=== PATIENT | male | born 1985 | race Two or more races ===

== ENCOUNTER 2025-07-01 03:30 | Emergency (ER) | payer MEDICAID, SELFPAY ==
--- NOTE | 2025-07-01 03:32 | PD.EDBACK ---
ED Back Injury Pain RME/HPI General Chief Complaint: Back Pain/Injury Stated Complaint: BACK PAIN Time Seen by Provider: 07/01/25 03:34 Arrival date/time: 07/01/25 03:30 RME / HPI RME / HPI Narrative: Dr. Mckeon?s Main ED Evaluation: 40yo male with no significant past medical history BIBAnnel from home presents to the ED for a chief complaint of lower back pain. Patient states he was bending over to take tape off of a box earlier tonight when he started having significant lower back pain. Patient states he got up to use the restroom tonight and was unable to tolerate the pain. EMS administered Ketamine 25mg en route. Patient denies any falls or injuries. Denies any N/V, fever, chills, or any other associated symptoms. NKA. Related Data Previous Rx's ?Medication ?Instructions ?Recorded ibuprofen 800 mg tablet 800 mg PO Q8H PRN pain #30 tabs 07/01/25 morphine 15 mg immediate release 15 mg PO Q6H PRN pain #20 tabs 07/01/25 tablet Allergies Allergy/AdvReac Type Severity Reaction Status Date / Time No Known Allergies Allergy Verified 08/23/23 09:08 Review of Systems Review of Systems Systems Reviewed: All systems reviewed, normal except as documented Past Medical History Social History SMOKING STATUS: Heavy (> 1 pack/day) ED Exam Narrative Physical exam: Patient is alert in mild distress secondary to pain, neurovascular exam shows no neurovascular deficits to the bilateral lower extremities, heart regular rate and rhythm, lungs clear to auscultation equal laterally, abdomen soft bowel sounds present also nontender, skin is warm, dry. Musculoskeletal exam shows the patient have bilateral paravertebral muscular tenderness to the lumbar spine. Course Quality Measures none Orders Category Date Time Status Dexamethasone Inj [Decadron Inj] Med 07/01/25 03:34 Discontinued 10 mg IVP X1 ONE HYDROmorphone INJ [Dilaudid Inj] Med 07/01/25 03:34 Discontinued 1 mg IVP X1 ONE Ketorolac Inj [Toradol Inj] Med 07/01/25 03:34 Discontinued 30 mg IVP X1 ONE Ondansetron Inj [Zofran Inj] Med 07/01/25 03:51 Discontinued 4 mg IVP X1 ONE Vital Signs Vital signs: Vital Signs Temperature 98 F 07/01/25 03:40 Pulse Rate 68 07/01/25 03:40 Respiratory Rate 15 07/01/25 03:40 Blood Pressure 145/98 H 07/01/25 03:40 Pulse Oximetry (%) 98 07/01/25 03:40 Oxygen Delivery Method Room Air 07/01/25 03:40 Back Pain / Injury MDM Narrative MDM Narrative:: Scribe Attestation: 07/01/25 - Lexie Russo am scribing for and in the presence of Dr. Mckeon. Patient received 25 mg of ketamine IV by paramedics with partial benefit. Patient then received Dilaudid 1 mg IV, Toradol 30 mg IV and Decadron 10 mg IV. Patient had some nausea so received Zofran 4 mg IV. He felt improved. He will be discharged on morphine and ibuprofen to be taken as prescribed. Apply warmth to painful areas. Follow-up with his doctor. Return to ER as needed or if condition worsens. Patient data External records reviewed:: [facility] previous records (Per chart review, patient has no relevant previous ED visits.) and EMS form Clinical information provided by:: patient and EMS Social determinants that could affect healthcare access:: none Patient has the following chronic illnesses:: none How is presenting disease/condition affected by chronic disease/condition?: no chronic disease Evaluation data The following diagnostics were reviewed and interpreted by me:: other (specify) (none) Lab and/or radiology exams considered but not ordered:: none Interpretation Summary: none Medications / Prescriptions Medications or Prescriptions considered but not ordered:: none Medication administrations:: Medication Administration History Discontinued Medications Dexamethasone Sodium Phosphate (Dexamethasone Sod Phos Inj 10 Mg/Ml Vial) 10 mg IVP X1 ONE Stop: 07/01/25 03:35 Last Admin: 07/01/25 03:52 Dose: 10 mg Documented By: MADI Hydromorphone HCl (Hydromorphone Inj 2 Mg/Ml Vial) 1 mg IVP X1 ONE Stop: 07/01/25 03:35 Last Admin: 07/01/25 03:51 Dose: 1 mg Documented By: MADI Ketorolac Tromethamine (Ketorolac Inj 30 Mg/Ml Vial) 30 mg IVP X1 ONE Stop: 07/01/25 03:35 Last Admin: 07/01/25 03:52 Dose: 30 mg Documented By: MADI Ondansetron HCl (Ondansetron Inj 2 Mg/Ml Inj 2 Ml) 4 mg IVP X1 ONE; Protocol Stop: 07/01/25 03:52 Last Admin: 07/01/25 03:56 Dose: 4 mg Documented By: MADI see above Consultations Consultation(s) initiated? (list below): No Diagnosis Differential diagnosis back pain/injury: other (See MDM) Most likely diagnosis given after review of the tests above:: see clinical impression below Admission Indicated Admission indicated?: not indicated Admission Request Was there a request for admission?: No Disposition Plan Disposition Plan: Discharge Discharge Attestation Discharge Attestation: The patient and all family members were given an opportunity to ask questions and understood the discharge instructions. Discharge instructions specifically effects, indications for sooner follow up or return to the emergency department, and the expected course of current diagnosis. Patient condition: Stable Discharge Plan Plan Patient Disposition: HOME (Self Care) Prescriptions/Referrals Prescriptions/Med Rec: New ibuprofen 800 mg tablet 800 mg PO Q8H PRN (Reason: pain) Qty: 30 0RF morphine 15 mg tablet 15 mg PO Q6H MDD 4 PRN (Reason: pain) Qty: 20 0RF Problem List Clinical Impression: Low back pain Patient/Caregiver Discharge Instructions Education Materials: ED Back Pain (Acute or Chronic) Additional Instructions: Medication as prescribed. Apply warm to painful areas. Follow-up with your doctor. Return to ER as needed or if condition worsens. Print Language: Croatian Stand Alone Forms: Luann Award Info., Patient Portal Info Letter
[2025-07-01 03:36] VITALS: PULSE 76; RESP 16; BMI 35.2
[2025-07-01 03:40] VITALS: BP 145/98; PULSE 68; RESP 15; TEMP 36.6; O2SAT 98
[2025-07-01] MEDS: HYDROmorphone INJ 2 MG/ML VIAL 1 MG IVP (03:51)
[2025-07-01] MEDS: KETOROLAC INJ 30 MG/ML VIAL IVP (03:52)
[2025-07-01] MEDS: DEXAMETHASONE SOD PHOS INJ 10 MG/ML VIAL IVP (03:52)
[2025-07-01] MEDS: ONDANSETRON INJ 2 MG/ML INJ 2 ML 4 MG IVP (03:56)
[2025-07-01 04:56] VITALS: BP 133/85; PULSE 58; RESP 18; TEMP 36.9; O2SAT 95
== END 2025-07-01 04:56 | disposition home or self-care (01) ==
PROVIDERS: Emergency Provider Emergency Medicine
DX: M54.50 Low back pain, unspecified (principal)
CPT/HCPCS: 96374; 96375; 99282; J1100; J1171; J1885; J2405